=== PATIENT | female | born 1955 | race Caucasian/White ===

== ENCOUNTER → 2017-05-29 | Outpatient (CLI) | payer OTHER, BC ==
--- NOTE | 2017-05-30 10:15 | MM ---
Reason for exam: screening (asymptomatic). Last mammogram was performed 3 years and 10 months ago. History: Patient is postmenopausal. Took hormonal contraceptives for 13 years. Took estrogen for 2 years 8 months beginning at age 52. Took progesterone for 2 years 8 months beginning at age 52. Physical Findings: A clinical breast exam by your physician is recommended on an annual basis and results should be correlated with mammographic findings. MG Screening Mammo w CAD Bilateral CC and MLO view(s) were taken. Prior study comparison: July 16, 2013, bilateral digital screening mammo w/CAD. May 30, 2011, bilateral digital screening mammo w/CAD. The breast tissue is heterogeneously dense. This may lower the sensitivity of mammography. Finding: There are typically benign round calcifications in the right breast. There is no discrete abnormality. ASSESSMENT: Benign, BI-RAD 2 RECOMMENDATION: Routine screening mammogram of both breasts in 1 year.
== END | disposition home or self-care (01) ==
LOC: RADMAMWWP 15:26
PROVIDERS: ATTEND Family Medicine
DX: Z12.31 Encounter for screening mammogram for malignant neoplasm of breast (principal)
CPT/HCPCS: 77067

== ENCOUNTER → 2017-06-25 | Outpatient (CLI) | payer OTHER, BC ==
--- NOTE | 2017-06-25 15:40 | NM ---
Nuclear medicine hepatobiliary scan. HISTORY: Pain. DOSAGE: The patient received 8 ounces of ensure plus and 5.2 mCi of Technetium 99m Choletec. FINDINGS: There is normal hepatic extraction. The gallbladder is seen by 20 minutes. There is bilia ry to bowel clearance by 30 minutes. Ejection fraction is 80%. IMPRESSION: 1. Normal filling of the gallbladder. 2. Ejection fraction of 80% which can occasionally be seen with hyperdynamic gallbladder.
== END | disposition home or self-care (01) ==
LOC: RADNMMAIN 12:52
PROVIDERS: ATTEND Family Medicine
DX: R10.9 Unspecified abdominal pain (principal)
CPT/HCPCS: 78226; A9537

== ENCOUNTER → 2018-11-12 | Outpatient (CLI) | payer OTHER, BC ==
--- NOTE | 2018-11-13 13:16 | MM ---
Reason for exam: screening (asymptomatic). Last mammogram was performed 1 year and 6 months ago. History: Patient is postmenopausal. Took hormonal contraceptives for 13 years. Took estrogen for 2 years 8 months beginning at age 52. Took progesterone for 2 years 8 months beginning at age 52. Physical Findings: A clinical breast exam by your physician is recommended on an annual basis and results should be correlated with mammographic findings. MG Screening Mammo w CAD Bilateral CC and MLO view(s) were taken. Prior study comparison: May 29, 2017, bilateral MG screening mammo w CAD. July 16, 2013, bilateral digital screening mammo w/CAD. The breast tissue is heterogeneously dense. This may lower the sensitivity of mammography. No suspicious abnormality. No significant changes when compared with prior studies. ASSESSMENT: Negative, BI-RAD 1 RECOMMENDATION: Routine screening mammogram of both breasts in 1 year.
== END | disposition home or self-care (01) ==
LOC: RADMAMWWP 11:01
PROVIDERS: ATTEND Family Medicine
DX: Z12.31 Encounter for screening mammogram for malignant neoplasm of breast (principal)
CPT/HCPCS: 77067

== ENCOUNTER → 2019-04-22 | Outpatient (CLI) | payer MEDICARE, OTHER ==
--- NOTE | 2019-05-15 21:56 | EM ---
EVENT MONITOR AGE:: 64 SEX:: Female This patient was monitored April 22 and May 12, 2019. The rhythm strip revealed sinus mechanism with single PACs. There was no evidence of ventricular ectopic activity and no significant pauses were noted. No atrial fibrillation was noted. YOVANI / ZEYNEPN: [id number] /
== END | disposition home or self-care (01) ==
LOC: RADECHMAIN 12:27
PROVIDERS: ATTEND Family Medicine
DX: R00.2 Palpitations (principal)
CPT/HCPCS: 93270

== ENCOUNTER 2020-08-09 11:19 | Emergency (ER) | payer MEDICARE, OTHER ==
[2020-08-09 11:32] VITALS: BP 121/75; PULSE 84; RESP 16; TEMP 98.2
--- NOTE | 2020-08-09 12:25 | ED ---
General Adult HPI - General Chief complaint: Headache Stated complaint: Chills/aches/cough/headach Time Seen by Provider: 08/09/20 12:10 Source: patient, family, RN notes reviewed, old records reviewed Mode of arrival: ambulatory Limitations: no limitations - History of Present Illness Initial comments: 65-year-old female presenting for coronavirus test. Patient states she's had headache, myalgias, chills over the past 5 days. The symptoms began on Saturday. She is presenting for evaluation on Saturday. She has had a minimal cough. Minimal nasal congestion which she states is normal for her. She denies measured fever, states that her temperature does run low normally. She is otherwise healthy, no chronic medical conditions. She denies abdominal pain nausea vomiting. She complains of gradual onset headache, and diffuse myalgias. She is uncertain if she has specifically coming contest with coronavirus but knows that many people around her are positive. - Related Data Allergies Allergy/AdvReac Type Severity Reaction Status Date / Time Penicillins Allergy Anaphylaxis Verified 08/09/20 11:29 Review of Systems ROS Statement: Those systems with pertinent positive or pertinent negative responses have been documented in the HPI. ROS Other: All systems not noted in ROS Statement are negative. Past Medical History Past Medical History: No Reported History History of Any Multi-Drug Resistant Organisms: None Reported Past Surgical History: Appendectomy, Section Past Psychological History: No Psychological Hx Reported Smoking Status: Never smoker Past Alcohol Use History: Occasional Past Drug Use History: None Reported General Exam Limitations: no limitations General appearance: alert, in no apparent distress Head exam: Present: atraumatic, normocephalic Eye exam: Present: normal appearance, EOMI ENT exam: Present: normal exam Neck exam: Present: normal inspection. Absent: tenderness, meningismus Respiratory exam: Present: normal lung sounds bilaterally. Absent: respiratory distress, wheezes Cardiovascular Exam: Present: regular rate, normal rhythm GI/Abdominal exam: Present: soft. Absent: distended, tenderness, guarding, rebound Extremities exam: Present: normal inspection, normal capillary refill. Absent: pedal edema, calf tenderness Neurological exam: Present: alert, oriented X3, CN II-XII intact. Absent: motor sensory deficit Psychiatric exam: Present: normal affect, normal mood Skin exam: Present: warm, dry, intact. Absent: cyanosis, diaphoretic Course Vital Signs 08/09/20 11:29 Temperature 98.2 F Pulse Rate 84 Respiratory 16 Rate Blood Pressure 121/75 O2 Sat by Pulse 99 Oximetry Medical Decision Making - Medical Decision Making 65-year-old female with symptoms concerning for coronavirus. Rapid test is performed, this is positive for coronavirus. Patient had a mild cough, no dyspnea, x-rays clear no signs of pneumonia currently. Patient is offered monoclonal antibody, she decides to hold off at this time and monitor her symptoms at home. She's given the anticipatory guidance and return parameters including increased cough, development of dyspnea or shortness of breath. Any new or alarming symptoms. She will quarantine. - Lab Data Lab Results 08/09/20 Range/Units 12:21 Coronavirus (PCR) Detected A (Not Detectd) Disposition Clinical Impression: COVID-19 Disposition: HOME SELF-CARE Condition: Good Instructions (If sedation given, give patient instructions): Coronavirus Disease 2019 (COVID-19) Additional Instructions: Please monitor her breathing at home. Please return with any worsening or changing symptoms. Is patient prescribed a controlled substance at d/c from ED?: No Referrals: Elizabeth Hurley MD [Primary Care Provider] - 1-2 days
--- NOTE | 2020-08-09 13:11 | XR ---
EXAMINATION TYPE: XR chest 1V portable DATE OF EXAM: 08/09/2020 COMPARISON: NONE HISTORY: Cough TECHNIQUE: Single frontal view of the chest is obtained. FINDINGS: There is no focal air space opacity, pleural effusion, or pneumothorax seen. The cardiac silhouette size is within normal limits. The osseous structures are intact. No overt failure. IMPRESSION: No acute process.
== END 2020-08-09 13:19 | disposition home or self-care (01) ==
LOC: EC 11:19
DX: U07.1 COVID-19 (principal)
CPT/HCPCS: 71045; 87635; 99284

== ENCOUNTER 2020-08-18 13:40 | Emergency (ER) | payer MEDICARE, OTHER ==
[2020-08-18] MEDS ORDERED: ACETAMINOPHEN TAB 500 MG TAB PO STA (14:30)
[2020-08-18] MEDS ORDERED: SODIUM CHLORIDE 0.9% 1,000 ML IV STA (14:33)
--- NOTE | 2020-08-18 14:33 | ED ---
General Adult HPI - General Chief complaint: Weakness Stated complaint: Covid Symptoms Time Seen by Provider: 08/18/20 14:04 Source: EMS Mode of arrival: EMS Limitations: no limitations - History of Present Illness Initial comments: 65-year-old female without any significant past medical history presents to the emergency room for a chief complaint of worsening covid that her symptoms. Patient reports that she was developed symptoms 14 days ago and was diagnosed here on the . Patient states that her body aches have worsened. States there are generalized all over her body. She also saw a dark spot on her tongue and became concerned that it could be due to low oxygen. Patient states she is also nauseous and has been having diarrhea. Feels she is dehydrated. States she has been drinking a lot of water but is not able to drink Gatorade or Pedialyte as it makes her more nauseous. Also complains of fatigue. Patient has been taking Motrin and Tylenol. She last took Motrin 2 hours prior to arrival and Tylenol 5 hours prior to arrival. Patient denies shortness of breath, chest pain, or abdominal pain. - Related Data Home Medications Medication Instructions Recorded Confirmed Adrenal Support 1 tab PO DAILY@1500 08/18/20 08/18/20 Adrenal Support 2 tab PO DAILY 08/18/20 08/18/20 Cholecalciferol [Vitamin D3 (25 100 mcg PO DAILY 08/18/20 08/18/20 Mcg = 1000 Iu)] Multivitamins, Thera [Multivitamin 1 tab PO DAILY 08/18/20 08/18/20 (formulary)] Thyroid Support 1 tab PO DAILY@1500 08/18/20 08/18/20 Thyroid Support 2 tab PO DAILY 08/18/20 08/18/20 Vitamin C(Unknown Dose) 1 tab PO DAILY 08/18/20 08/18/20 Zinc(Unknown Dose) 1 tab PO DAILY 08/18/20 08/18/20 Previous Rx's Medication Instructions Recorded Cyclobenzaprine [Flexeril] 10 mg PO TID #10 tab 08/18/20 Ondansetron [Zofran ODT] 4 mg PO Q8HR PRN #15 tab 08/18/20 Allergies Allergy/AdvReac Type Severity Reaction Status Date / Time Penicillins Allergy Anaphylaxis Verified 08/18/20 14:56 codeine AdvReac Hallucinati Verified 08/18/20 14:56 ons dexamethasone AdvReac Lethargic Verified 08/18/20 14:56 prednisone AdvReac Lethargic Verified 08/18/20 14:56 Lpcarmf-Kdf-Evk Reductase AdvReac Muscle Verified 08/18/20 14:56 Inhibitor pain/Sinus Issues steroids AdvReac Lethargic Uncoded 08/18/20 14:56 Review of Systems ROS Statement: Those systems with pertinent positive or pertinent negative responses have been documented in the HPI. ROS Other: All systems not noted in ROS Statement are negative. Past Medical History Past Medical History: No Reported History History of Any Multi-Drug Resistant Organisms: None Reported Past Surgical History: Appendectomy, Section Past Psychological History: No Psychological Hx Reported Smoking Status: Never smoker Past Alcohol Use History: Occasional Past Drug Use History: None Reported General Exam Limitations: no limitations General appearance: alert, in no apparent distress Head exam: Present: atraumatic, normocephalic, normal inspection Eye exam: Present: normal appearance, PERRL, EOMI. Absent: scleral icterus, conjunctival injection, periorbital swelling ENT exam: Present: normal exam, mucous membranes moist Neck exam: Present: normal inspection, full ROM. Absent: tenderness, meningismus, lymphadenopathy Respiratory exam: Present: normal lung sounds bilaterally. Absent: respiratory distress, wheezes, rales, rhonchi, stridor Cardiovascular Exam: Present: regular rate, normal rhythm, normal heart sounds. Absent: systolic murmur, diastolic murmur, rubs, gallop, clicks GI/Abdominal exam: Present: soft, normal bowel sounds. Absent: distended, tenderness, guarding, rebound, rigid Neurological exam: Present: alert Course Vital Signs 08/18/20 08/18/20 08/18/20 13:50 16:21 16:22 Temperature 99.1 F 97.1 F L Pulse Rate 69 74 Respiratory 16 16 18 Rate Blood Pressure 130/70 130/70 O2 Sat by Pulse 98 98 Oximetry EKG Findings - EKG Comments: EKG Findings:: Normal sinus rhythm, ventricular rate 66, MT interval 158, QTC 413 Medical Decision Making - Medical Decision Making Vitals are stable. Patient is 98% on room air. She is in no distress. Patient did have a Covid test about 10 days ago with positive result. EKG nonischemic. CBC unremarkable. CMP does show slight transaminitis likely secondary to Clomid. CRP is elevated which is also likely secondary to covid. Chest x-ray does show a bilateral patchy airspace disease, correlate for pneumonia. Suspect this is viral in nature. Patient given fluids. At this time patient is stable for discharge home. Recommend she follow up with primary care closely and I did discuss strict return parameters. We will give patient Zofran for nausea as well as muscle relaxer for evenings tattoo Motrin and Tylenol when she starts to get muscle aches. Discussed not to drive while taking these. - Lab Data Result diagrams: 08/18/20 14:40 08/18/20 14:40 Lab Results 08/18/20 08/18/20 08/18/20 Range/Units 14:40 14:40 14:40 WBC 7.4 (3.8-10.6) k/uL RBC 4.22 (3.80-5.40) m/uL Hgb 12.3 (11.4-16.0) gm/dL Hct 36.3 (34.0-46.0) % MCV 86.1 (80.0-100.0) fL MCH 29.2 (25.0-35.0) pg MCHC 34.0 (31.0-37.0) g/dL RDW 13.2 (11.5-15.5) % Plt Count 250 (150-450) k/uL MPV 7.7 Neutrophils % 85 % Lymphocytes % 8 % Monocytes % 6 % Eosinophils % 1 % Basophils % 0 % Neutrophils # 6.2 (1.3-7.7) k/uL Lymphocytes # 0.6 L (1.0-4.8) k/uL Monocytes # 0.4 (0-1.0) k/uL Eosinophils # 0.1 (0-0.7) k/uL Basophils # 0.0 (0-0.2) k/uL PT 9.9 (9.0-12.0) sec INR 0.9 (<1.2) APTT 24.1 (22.0-30.0) sec Sodium 138 (137-145) mmol/L Potassium 4.5 (3.5-5.1) mmol/L Chloride 102 (98-107) mmol/L Carbon Dioxide 28 (22-30) mmol/L Anion Gap 8 mmol/L BUN 7 (7-17) mg/dL Creatinine 0.68 (0.52-1.04) mg/dL Est GFR (CKD-EPI)AfAm >90 (>60 ml/min/1.73 sqM) Est GFR (CKD-EPI)NonAf >90 (>60 ml/min/1.73 sqM) Glucose 94 (74-99) mg/dL Calcium 8.8 (8.4-10.2) mg/dL Magnesium 2.1 (1.6-2.3) mg/dL Total Bilirubin 0.6 (0.2-1.3) mg/dL AST 68 H (14-36) U/L ALT 45 H (4-34) U/L Alkaline Phosphatase 312 H (38-126) U/L Lactate Dehydrogenase 973 H (313-618) U/L C-Reactive Protein 171.4 H (<10.0) mg/L Total Protein 6.2 L (6.3-8.2) g/dL Albumin 3.5 (3.5-5.0) g/dL Disposition Clinical Impression: COVID-19 Disposition: HOME SELF-CARE Condition: Good Instructions (If sedation given, give patient instructions): Coronavirus Disease 2019 (COVID-19) Additional Instructions: Continue to take the vitamins. Take Zofran as needed for nausea. Take muscle relaxer at night as needed but do not drive while taking this. Follow-up with your doctor. Return to the emergency room for any worsening symptoms. Prescriptions: Cyclobenzaprine [Flexeril] 10 mg PO TID #10 tab Ondansetron [Zofran ODT] 4 mg PO Q8HR PRN #15 tab PRN Reason: Nausea Is patient prescribed a controlled substance at d/c from ED?: No Referrals: Elizabeth Hurley MD [Primary Care Provider] - 1-2 days Time of Disposition: 16:47
[2020-08-18 14:58] LABS: Basophils % (A) 0 %; Eosinophils # (A) 0.1 k/uL (0-0.7); Eosinophils % (A) 1 %; HCT 36.3 % (34.0-46.0); HGB 12.3 gm/dL (11.4-16.0); Lymphocytes # (A) 0.6 k/uL (1.0-4.8); Lymphocytes % (A) 8 %; MCH 29.2 pg (25.0-35.0); MCV 86.1 fL (80.0-100.0); Mean Platelet Volume 7.7; Monocytes # (A) 0.4 k/uL (0-1.0); Monocytes % (A) 6 %; Neutrophils # (A) 6.2 k/uL (1.3-7.7); Neutrophils % (A) 85 %; Platelet Count 250 k/uL (150-450); RBC 4.22 m/uL (3.80-5.40); RDW 13.2 % (11.5-15.5); WBC 7.4 k/uL (3.8-10.6)
[2020-08-18 15:10] LABS: INR 0.9 (<1.2); Partial Thromboplastin Time 24.1 sec (22.0-30.0); Prothrombin Time 9.9 sec (9.0-12.0)
[2020-08-18 15:11] LABS: ALT 45 U/L (4-34); AST 68 U/L (14-36); African American GFR (CKD) >90 (>60 ml/min/1.73 sqM); Albumin 3.5 g/dL (3.5-5.0); Alkaline Phosphatase 312 U/L (38-126); Anion Gap 8 mmol/L; Blood Urea Nitrogen 7 mg/dL (7-17); Calcium 8.8 mg/dL (8.4-10.2); Carbon Dioxide 28 mmol/L (22-30); Chloride 102 mmol/L (98-107); Glucose 94 mg/dL (74-99); LDH 973 U/L (313-618); Magnesium 2.1 mg/dL (1.6-2.3); Non-African American GFR(CKD) >90 (>60 ml/min/1.73 sqM); Potassium 4.5 mmol/L (3.5-5.1); Sodium 138 mmol/L (137-145); Total Bilirubin 0.6 mg/dL (0.2-1.3); Total Protein 6.2 g/dL (6.3-8.2)
--- NOTE | 2020-08-18 15:42 | XR ---
EXAMINATION TYPE: XR chest 1V portable DATE OF EXAM: 08/18/2020 COMPARISON: Chest x-ray 08/09/2020 HISTORY: Cough, Covid positive, shortness of breath TECHNIQUE: Single frontal view of the chest is obtained. FINDINGS: Bilateral patchy airspace disease is present. No evident pneumothorax or pleural effusion. Cardiomediastinal silhouette is within normal limits. IMPRESSION: Correlate for pneumonia.
[2020-08-18 15:51] LABS: C Reactive Protein 171.4 mg/L (<10.0)
[2020-08-18 16:23] VITALS: TEMP 97.1
[2020-08-18 16:25] VITALS: RESP 18
[2020-08-18 17:32] VITALS: BP 123/71; PULSE 87
[2020-08-19 01:57] LABS: Ferritin 208.4 ng/mL (10.0-291.0)
== END 2020-08-18 17:32 | disposition home or self-care (01) ==
LOC: EC 13:40
DX: U07.1 COVID-19 (principal)
CPT/HCPCS: 36415; 71045; 80053; 82728; 83615; 83735; 84145; 85025; 85610; 85730; 86140; 93005; 99285

== ENCOUNTER → 2020-11-14 | Outpatient (CLI) | payer MEDICARE, OTHER ==
--- NOTE | 2020-11-15 13:47 | MM ---
Reason for exam: screening (asymptomatic). Last mammogram was performed 2 years ago. History: Patient is postmenopausal. Took hormonal contraceptives for 13 years. Took estrogen for 2 years 8 months beginning at age 52. Took progesterone for 2 years 8 months beginning at age 52. Physical Findings: A clinical breast exam by your physician is recommended on an annual basis and results should be correlated with mammographic findings. MG 3D Screening Mammo W/Cad Bilateral CC and MLO view(s) were taken. Prior study comparison: November 12, 2018, bilateral MG screening mammo w CAD. May 29, 2017, bilateral MG screening mammo w CAD. The breast tissue is heterogeneously dense. This may lower the sensitivity of mammography. There is no discrete abnormality. No significant changes when compared with prior studies. ASSESSMENT: Negative, BI-RAD 1 RECOMMENDATION: Routine screening mammogram of both breasts in 1 year.
--- NOTE | 2020-11-16 14:47 | BD ---
EXAMINATION TYPE: Axial Bone Density DATE OF EXAM: 11/14/2020 COMPARISON: 07.16.2013 CLINICAL HISTORY: 65 YR OLD FEMALE......ICD-10 CODE: Z78.0 POST MENOPAUSAL Height: 66 Weight: 142 FRAX RISK QUESTIONS: History of Fracture in Adulthood: YES RISK FACTORS HISTORY OF: FOOT FX >50 YRS OLD Diet low in dairy products/other sources of calcium: YES Postmenopausal woman: YES AT AGE 52 YRS OLD Hyperparathyroidism: NO Adrenal Insufficiency: NO MEDICATIONS: Additional Medications: CALCIUM AND VIT D Additional History: NOTHING ADDITIONAL TO NOTE EXAM MEASUREMENTS: Bone mineral densitometry was performed using the [employer] System. Bone mineral density as measured about the Lumbar spine is: ----- L1-L4(G/cm2): 1.578 T Score Values are as follows: ----- L1: 1.5 ----- L2: 2.3 ----- L3: 3.6 ----- L4: 4.7 ----- L1-L4: 3.3 Bone mineral density has: Increased 3.6% since study of: 07.16.2013 Bone mineral density about the R hip (g/cm2): 1.067 Bone mineral density about the L hip (g/cm2): 1.091 T Score values are as follows: -----R Neck: -0.2 -----L Neck: -0.3 -----R Total: 0.5 -----L Total: 0.7 Bone mineral density has: Decreased -4.7% since study of: 07.16.2013 FRAX%s: THERE IS A 11.5% CHANCE FOR A MAJOR OSTEOPOROTIC FX AND A 0.6% FOR HIP......PROBABILITY F OR FX IN 10 YRS TIME IMPRESSION: Normal (Values between +1 and -1 indicate normal bone mass). Consider repeating this study in 5 year s or sooner if there is some new clinical indication. NOTE: T-SCORE=SD OF THE YOUNG ADULT MEAN.
== END | disposition home or self-care (01) ==
LOC: RADBDWWP 08:12
PROVIDERS: ATTEND Family Medicine
DX: Z12.31 Encounter for screening mammogram for malignant neoplasm of breast (principal); Z78.0 Asymptomatic menopausal state; Z79.899 Other long term (current) drug therapy
CPT/HCPCS: 77063; 77067; 77080

== ENCOUNTER → 2024-07-15 | Outpatient (CLI) | payer MEDICARE, OTHER ==
--- NOTE | 2024-07-15 12:25 | MM ---
Reason for Exam: Screening (asymptomatic). Last mammogram was performed 1 year(s) and 5 month(s) ago. Patient History: Menarche at age 12. First Full-Term at age 24. Postmenopausal. Estrogen, starting at age 52 for 2 years, 8 months. Progesterone, starting at age 52 for 2 years, 8 months. Patient used Hormonal Contraceptives for 13 years. Risk Values: Michelle 5 year model risk: 1.9%. NCI Lifetime model risk: 5.6%. Prior Study Comparison: 11/12/2018 Bilateral Screening Mammogram, [facility]. 11/14/2020 Bilateral Screening Mammogram, [facility]. 02/08/2023 Bilateral MG 3D screening mammo w/cad, [facility]. Tissue Density: There are scattered areas of fibroglandular density. Findings: Analyzed By CAD. Right breast: There is no suspicious group of microcalcifications or new suspicious mass. Left breast: There is no suspicious group of microcalcifications or new suspicious mass. Overall Assessment: Negative, BI-RAD 1 Management: Screening Mammogram of both breasts in [address] [facility] will attempt to contact patient to return for supplemental views and ultrasound if indicated. Patient should continue monthly self-breast exams. A clinical breast exam by your physician is recommended on an annual basis. This exam should not preclude additional follow-up of suspicious palpable abnormalities. Note on Michelle scores and lifetime risk: 1. A Michelle score greater than 3% is considered moderate risk. If this is the case, consider specialist referral to assess eligibility for a risk reducing agent. 2. If overall lifetime risk for the development of breast cancer is 20% or higher, the patient may qualify for future screening with alternating mammogram and breast MRI. [facility], , 07/15/2024 12:21 PM. Electronically signed and approved by: Markus Villafana DO
== END | disposition home or self-care (01) ==
LOC: RADMAMWWP 10:56
PROVIDERS: ATTEND Family Medicine
DX: Z12.31 Encounter for screening mammogram for malignant neoplasm of breast (principal); R92.323 Mammographic fibroglandular density, bilateral breasts; Z78.0 Asymptomatic menopausal state; Z92.0 Personal history of contraception
CPT/HCPCS: 77063; 77067